=== PATIENT | female | born 1970 | race American Indian/Alaskan Native ===

== ENCOUNTER 2021-01-05 14:06 | Emergency (ER) | payer OTHER ==
[2021-01-05 15:29] LABS: Basophils % (Auto) 0.7 % (0.0-1.8); Eosinophils # (Auto) 0.1 K/mm3 (0.0-0.4); Eosinophils % (Auto) 2.2 % (0.0-4.3); Hematocrit 37.6 % (30.3-42.9); Hemoglobin 12.3 gm/dl (10.1-14.3); Lymphocytes # (Auto) 2.7 K/mm3 (1.2-5.4); Lymphocytes % (Auto) 42.4 % (13.4-35.0); Mean Corpuscular HGB Conc 33 % (30-34); Mean Corpuscular Volume 85 fl (79-97); Monocytes # (Auto) 0.8 K/mm3 (0.0-0.8); Monocytes % (Auto) 12.9 % (0.0-7.3); Platelet Count 249 K/mm3 (140-440); Red Blood Count 4.43 M/mm3 (3.65-5.03); Red Cell Distribution Width 13.5 % (13.2-15.2)
[2021-01-05 15:49] LABS: Bilirubin,Urine NEG (Negative); Blood,Urine NEG (Negative); Color,Urine Yellow (Yellow); Mucus,Urine 3+ /HPF; Protein,Urine <15 mg/dL mg/dL (Negative); Urobilinogen,Urine < 2.0 mg/dL (<2.0)
[2021-01-05 15:51] LABS: Alanine Aminotransferase 9 units/L (7-56); Albumin 3.7 g/dL (3.9-5); BUN/Creatinine Ratio 11; Blood Urea Nitrogen 10 mg/dL (7-17); Calcium 8.4 mg/dL (8.4-10.2); Hemolysis Index 5
[2021-01-05] MEDS ORDERED: SODIUM CHLORIDE 0.9% 1000 ML 1,000 ML IV ONE (16:14)
[2021-01-05] MEDS ORDERED: ONDANSETRON 4 MG/2 ML INJ IV ONE (16:14)
[2021-01-05] MEDS ORDERED: MORPHINE 4 MG/1 ML INJ IV ONE (16:14)
[2021-01-05] MEDS ORDERED: POTASSIUM CHLORIDE ER 20 MEQ TAB PO ONE (17:06)
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
[2021-01-05] MEDS ORDERED: metroNIDAZOLE/NS 500 MG/100 ML 500 MG/100 ML BAG IV ONE (17:29)
[2021-01-05 19:13] VITALS: BP 107/77
== END 2021-01-05 19:14 | disposition home or self-care (01) ==
LOC: ED 14:06
DX: K52.9 Noninfective gastroenteritis and colitis, unspecified (principal); Z88.0 Allergy status to penicillin; Z79.899 Other long term (current) drug therapy; Z90.710 Acquired absence of both cervix and uterus
CPT/HCPCS: 36415; 74177; 80053; 81001; 83690; 84703; 85025; 96361; 96365; 96368; 96375; 99284; J1956; J2270; J2405; J7030; Q9967

== ENCOUNTER 2021-01-07 11:20 | Emergency (ER) | payer OTHER ==
[2021-01-07] MEDS ORDERED: methylPREDNISolone Sod Succinate 125 MG/2 ML INJ IM ONE (12:06)
[2021-01-07] MEDS ORDERED: diphenhydrAMINE 25 MG CAP PO ONE (12:06)
[2021-01-07] MEDS ORDERED: FAMOTIDINE 20 MG TAB PO ONE (12:06)
--- NOTE | 2021-01-07 12:08 | Emergency Department Report ---
ED Allergic Reaction HPI - General Chief complaint: Allergic Reaction Stated complaint: ALLERGIC REACTION Time Seen by Provider: 01/07/21 11:45 Source: patient Mode of arrival: Ambulatory Limitations: No Limitations - History of Present Illness Initial Comments: 50-year-old female presents to the ER today with complaints of facial swelling and itching. Patient states that earlier this morning before waking up she had some mild itching to her face then when she went to the bathroom to look she noticed that she had facial swelling. She also reports itching to her upper extremities. She denies any rash. She denies any swelling to her extremities. Denies any tongue or throat swelling. She denies any difficulty breathing, wheezing or cough. Patient was started on Cipro and Flagyl on January 05 after being seen here and diagnosed with colitis. Patient states that she started taking the medications yesterday and she has taken 3 doses of both. She states that she has allergies to penicillin but no other antibiotics. Other than the Cipro and Flagyl she denies any other new meds, soaps, lotions, deodorants or any other new contacts. She is also not on any blood pressure medications she states that she did not take any Benadryl this morning. MD Complaint: facial swelling -: Sudden (noticed it this morning ) - Related Data Previous Rx's Medication Instructions Recorded Last Taken Type HYDROcodone/APAP 5-325 [[place] 1 each PO Q4HR PRN #30 tablet 02/05/14 Unknown Rx 5-325 mg TAB] Promethazine [Phenergan] 25 mg [place] Q6HR PRN #7 supp.rect 02/05/14 Unknown Rx Ondansetron [Zofran Odt] 4 mg PO Q8HR PRN #12 tab.rapdis 01/05/21 Unknown Rx Famotidine [Pepcid] 20 mg PO BID #10 tablet 01/07/21 Unknown Rx diphenhydrAMINE [Benadryl CAP] 25 mg PO Q6HR PRN #30 capsule 01/07/21 Unknown Rx predniSONE [Deltasone] 50 mg PO QDAY #5 tab 01/07/21 Unknown Rx Allergies Allergy/AdvReac Type Severity Reaction Status Date / Time Penicillins Allergy Swelling Verified 02/02/14 17:59 ED Review of Systems ROS: Stated complaint: ALLERGIC REACTION Other details as noted in HPI Comment: All other systems reviewed and negative Constitutional: denies: chills, fever Eyes: denies: eye pain, eye discharge, vision change ENT: other (Facial swelling and itching). denies: ear pain, throat pain, dental pain, hearing loss, epistaxis, congestion Respiratory: denies: cough, orthopnea, shortness of breath, SOB with exertion, SOB at rest, wheezing Cardiovascular: denies: chest pain, palpitations Gastrointestinal: denies: abdominal pain, nausea, vomiting, diarrhea, constipation, hematemesis, melena, hematochezia Genitourinary: denies: urgency, dysuria, discharge Musculoskeletal: denies: back pain, joint swelling, arthralgia, myalgia Skin: pruritus. denies: rash, lesions, change in color, change in hair/nails Neurological: denies: headache, weakness, numbness, paresthesias, confusion, abnormal gait, vertigo Psychiatric: denies: anxiety, depression, auditory hallucinations, visual hallucinations, homicidal thoughts, suicidal thoughts Hematological/Lymphatic: denies: easy bleeding, easy bruising, swollen glands ED Past Medical Hx - Past Medical History Previous Medical History?: No Hx Congestive Heart Failure: No Hx Diabetes: No Hx Asthma: No Hx COPD: No - Surgical History Past Surgical History?: Yes Additional Surgical History: hysterectomy - Social History Smoking Status: Never Smoker Substance Use Type: None - Medications Home Medications: Home Medications Medication Instructions Recorded Confirmed Last Taken Type HYDROcodone/APAP 5-325 [[place] 1 each PO Q4HR PRN #30 tablet 02/05/14 Unknown Rx 5-325 mg TAB] Promethazine [Phenergan] 25 mg [place] Q6HR PRN #7 supp.rect 02/05/14 Unknown Rx Ondansetron [Zofran Odt] 4 mg PO Q8HR PRN #12 tab.rapdis 01/05/21 Unknown Rx Famotidine [Pepcid] 20 mg PO BID #10 tablet 01/07/21 Unknown Rx diphenhydrAMINE [Benadryl CAP] 25 mg PO Q6HR PRN #30 capsule 01/07/21 Unknown Rx predniSONE [Deltasone] 50 mg PO QDAY #5 tab 01/07/21 Unknown Rx ED Physical Exam - General Limitations: No Limitations General appearance: alert, in no apparent distress - Head Head exam: Present: atraumatic, normocephalic, normal inspection - Eye Eye exam: Present: normal appearance, PERRL, EOMI Pupils: Present: normal accommodation - ENT ENT exam: Present: normal exam, mucous membranes dry, mucous membranes moist, other (Mild swelling noted to the upper eyelids, cheeks and upper lip; no swelling to tongue or posterior pharynx.) - Neck Neck exam: Present: normal inspection, full ROM - Respiratory Respiratory exam: Present: normal lung sounds bilaterally. Absent: respiratory distress, wheezes, rales, rhonchi, chest wall tenderness - Cardiovascular Cardiovascular Exam: Present: regular rate, normal rhythm, normal heart sounds - GI/Abdominal GI/Abdominal exam: Present: soft. Absent: distended, tenderness, guarding - Neurological Exam Neurological exam: Present: alert, oriented X3, CN II-XII intact, normal gait - Psychiatric Psychiatric exam: Present: normal affect, normal mood - Skin Skin exam: Present: intact, rash (Mild erythema noted to back and upper chest) ED Course Vital Signs 01/07/21 01/07/21 11:32 14:06 Temperature 98.3 F Pulse Rate 82 69 Respiratory 18 16 Rate Blood Pressure 100/74 114/83 [Right] O2 Sat by Pulse 96 99 Oximetry ED Medical Decision Making - Medical Decision Making 1340: Patient currently resting comfortably. She reports she is no longer itching. She still has some mild swelling to the face and upper lip but not any worse since since she has received the medications and was observed. Her vital signs are stable. She is not currently in any acute pain or respiratory distress. She is controlling her secretions well, her airway is intact and she has no trismus, stridor, cough, or wheezing. She is well-appearing, not toxic and appears well-hydrated. She is neurologically intact with a normal gait. The allergic reaction she is currently having could be related to the Cipro and/or the Flagyl she was prescribed 3 days ago. Patient states she is no longer having any GI symptoms including no longer having diarrhea and therefore patient will be instructed to stop taking the Cipro and the Flagyl. She is scheduled to see a GI specialist on 27 January which I recommended that she keeps. Patient will be discharged home with prednisone, Pepcid and Benadryl to continue taking for an additional 5 days. Patient expressed understanding of instructions and agree with plan. Patient was stable at time of discharge. Critical care attestation.: If time is entered above; I have spent that time in minutes in the direct care of this critically ill patient, excluding procedure time. ED Disposition Clinical Impression: Allergic reaction caused by a drug, Angioedema Disposition: DC-01 TO HOME OR SELFCARE Is pt being admited?: No Does the pt Need Aspirin: No Condition: Stable Instructions: Angioedema, [id number], Drug Allergy, [id number] Additional Instructions: Recommend that you take the prednisone, the Benadryl and the Pepcid as presc ribed. Recommend that you stop the Cipro and the Flagyl. Keep your appointment with your GI specialist on the . Follow-up this week with your primary care doctor. Return to the ER if your symptoms changes or worsens in any way. Prescriptions: diphenhydrAMINE [Benadryl CAP] 25 mg PO Q6HR PRN #30 capsule PRN Reason: Itching predniSONE [Deltasone] 50 mg PO QDAY #5 tab Famotidine [Pepcid] 20 mg PO BID #10 tablet Referrals: PRIMARY CARE, [Primary Care Provider] - 3-5 Days Forms: Work/School Release Form(ED) Time of Disposition: 13:37
[2021-01-07 14:11] VITALS: BP 114/83
== END 2021-01-07 14:06 | disposition home or self-care (01) ==
LOC: ED 11:20
DX: T78.3XXA Angioneurotic edema, initial encounter (principal); T36.8X5A Adverse effect of other systemic antibiotics, initial encounter; Z90.710 Acquired absence of both cervix and uterus; Z79.899 Other long term (current) drug therapy; Z88.0 Allergy status to penicillin; Y92.89 Other specified places as the place of occurrence of the external cause
CPT/HCPCS: 96372; 99282; J2930